=== PATIENT | female | born 1950 | race Caucasian/White ===

== ENCOUNTER 2024-03-16 14:51 | Outpatient (RCR) | payer OTHER, MEDICARE, SELFPAY | END 2024-03-16 23:59 | disposition home or self-care (01) | LOC: RPT 14:51 | PROVIDERS: ATTENDING PHYSICIAN Electrodiagnostic Medicine; FAMILY PHYSICIAN Internal Medicine | DX: M54.16 Radiculopathy, lumbar region (principal); Z73.6 Limitation of activities due to disability; M62.81 Muscle weakness (generalized) | CPT/HCPCS: 97110; 97112; 97163; 97530 ==

== ENCOUNTER 2024-04-09 13:00 | Outpatient (RCR) | payer OTHER, MEDICARE, SELFPAY | END 2024-04-09 23:59 | disposition home or self-care (01) | LOC: RPT 13:00 | PROVIDERS: ATTENDING PHYSICIAN Electrodiagnostic Medicine; FAMILY PHYSICIAN Internal Medicine | DX: M54.16 Radiculopathy, lumbar region (principal); M62.81 Muscle weakness (generalized); Z73.6 Limitation of activities due to disability | CPT/HCPCS: 97110; 97112 ==

== ENCOUNTER 2024-07-29 16:44 | Emergency (ER) | payer MEDICARE, OTHER, SELFPAY ==
[2024-07-29 16:48] VITALS: BP 151/107
[2024-07-29] MEDS: ADACEL 0.5 ML IM (18:02)
[2024-07-29] MEDS: TYLENOL 650 MG PO (19:05)
--- NOTE | 2024-07-29 23:27 | ED.MUSCINJ ---
HPI-Injury
General
Chief Complaint: Fall
Source: patient
Exam Limitations: none
Time Seen by Provider: 07/29/24 17:46
Nursing documentation reviewed up to this point in time: agreed with
History of Present Illness-Injury
Is this injury a work related problem?: No
Is pt an associate of [facility]?: No
Initial Injury comments:
Patient to ED after trip and fall. States she tripped over uneven pavement. Hit face on pavement. No LOC. COmplains of headache, face pain, bilateral hand pain, abrasions to bilateral hands and bilateral knees, low back pain. Injury occured
today. She was seen initially at but referred tp ED
Past History
Past History
ED Past Medical History: GERD, HTN, Hypercholesterolemia, Hypothyroidism, Psychiatric (Anxiety) and Other (MS, Thyroid, PTSD, Kim's thyroiditis, constipation)
ED Past Surgical History: Tonsilectomy and Other (Left breast lumpectomy, dental surgery)
Social History
Tobacco: Former smoker
Alcohol: Occasional
Drug: None
Personal:
Living: alone
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
Family History
Family History: Other (Noncontributory)
Musculoskeletal Injury Exam
Musculoskeletal Injury Exam
Left Face:
Pain with Movement?: Mild
Tender to palpation?: Moderate
Soft tissue swelling?: Mild
External deformity and angulation?: None
Joint effusion?: None
Contusion?: Moderate
Hematoma-local bleeding into tissue?: Mild
Strain- Sprain- Tear (Connective tissue injury)?: None
Crepitus with movement?: No
Joint instability?: No
Malalignment/deformity?: No
Range of motion: Full
Distal skin color and temperature: normal-warm & good color
Capillary Refill: normal
Normal distal neurovascular exam?: Yes
Bilateral Lower Back:
Pain with Movement?: Mild
Tender to palpation?: Mild
Soft tissue swelling?: None
External deformity and angulation?: None
Joint effusion?: None
Contusion?: None
Hematoma-local bleeding into tissue?: None
Strain- Sprain- Tear (Connective tissue injury)?: Mild
Crepitus with movement?: No
Joint instability?: No
Malalignment/deformity?: No
Range of motion: Full
Distal skin color and temperature: normal-warm & good color
Capillary Refill: normal
Normal distal neurovascular exam?: Yes
Bilateral Hand:
Pain with Movement?: Mild
Tender to palpation?: Mild
Soft tissue swelling?: None
External deformity and angulation?: None
Joint effusion?: None
Contusion?: None
Hematoma-local bleeding into tissue?: None
Strain- Sprain- Tear (Connective tissue injury)?: Moderate
Crepitus with movement?: No
Joint instability?: No
Malalignment/deformity?: No
Range of motion: Limited
Distal skin color and temperature: normal-warm & good color
Capillary Refill: normal
Normal distal neurovascular exam?: Yes
Skin Exam
Abrasion
Bilateral Hand:
Description of abrasion: superfical/clean
Bilateral Knee:
Description of abrasion: superfical/clean
Phy Exam
General Physical Exam
General Presentation: well appearing and no apparent distress
General age: appears stated age
General Skin: warm and dry
General Habitus: normal
General Mental: alert
Eye Exam
Eye Exam: PERRL, EOMI and conjunctiva normal
Cardiovascular Exam
Cardiovascular Exam: regular rate/rhythm and no edema
Neurological Exam
Neurological Exam: alert, oriented x3, CN II-XII intact, no motor deficits, no sensory deficits and speech normal
[place] Coma Scale
Eye Opening: Spontaneous
Verbal Response: Oriented
Motor Response: Obeys Commands
GCS Total Score: 15
Musculoskeletal Exam
Musculoskeletal Exam: full ROM and neuro vasc intact
Skin Exam
Skin Exam: normal color, warm/dry and no rash
Psychiatric Exam
Psychiatric Exam: normal mood/affect
Injury Course
Orders/Labs/Results
Orders:
Orders
07/29/24 17:55
Cervical Spine wo Contrast CT [CT Cervical Spine W/o Iv Contr] Urgent
Comment:
Reason For Exam: fall
Facial Bones wo Contrast CT [CT Facial Bones W/o Iv Contras] Urgent
Comment:
Reason For Exam: fall
Tetanus/Diphth/Acelpertussis [Adacel] 0.5 ml IM .ONCE ONE
CR Lumbar Spine Comp Min 4 Vw* Urgent
Comment:
Reason For Exam: fall
Hand, Left 3 View [CR Hand - Left Min 3 Views] Urgent
Comment:
Reason For Exam: fall
Hand, Right 3 View [CR Hand - Right Min 3 Views] Urgent
Comment:
Reason For Exam: fall
07/29/24 17:56
CT Head W/o Iv Contrast Urgent
Comment:
Reason For Exam: fall
07/29/24 18:15
Acetaminophen [Tylenol] 650 mg PO NOW STA
*Radiology
Radiology exam reviewed: radiology read reviewed
*Pulse Oximetry
Patient hypoxic: no
*Critical Care Note
Total Time (30-74mins, 75-104mins- exclusive of procedures): Not Applicable
Update Note
Update Note:
Patient to ED s/p fall on uneven pavement. Hit head but no LOC. CT head neg. Moving all extremities, equal strength bilaterally. Able to ambulate without assistance. Wounds cleansed and dressed by RN. Reviewed CT and xray reports with her.
Will discharge home and she will follow upw ith PCP. She is agreeable to plan.
ED Attending Note
-
Portions of this chart may have been created with voice recognition software.� Occasional wrong word or��sound alike� substitutions may have occurred due to the inherent limitations of voice recognition software.
Discharge Plan
Departure
Patient Disposition: Home (Routine Discharge)
Date of Disposition: 07/29/24
Time of Disposition: 19:16
Patient with high blood pressure during this ER visit?: No
Condition: Good
Covid-19: Not Applicable
Discharge Problem:
Head injury, Contusion of face, Contusion of knee, Multiple abrasions
Instructions: Wound Care (DC), Head Injury in Adults (DC), Contusion (DC), Preventing falls in adults, Skin Abrasions (DC), Using Cold for Pain, Ibuprofen
Prescriptions:
No Action
levothyroxine 75 MCG tablet
75 mcg PO DAILY
diazepam 2 MG tablet
2 mg PO HSPRN PRN (Reason: anxiety)
simvastatin 5 MG tablet
5 mg PO DAILY
docusate sodium 100 MG capsule
300 mg PO HS
Referrals:
Octavia aCrvajal NP [Family Provider] - Tomorrow
Interventions
Interventions:
*Risk Screen - Suicide Last Done: 07/29/24 16:48
*General Assessment Last Done: 07/29/24 16:48
*Neglect/Abuse Screening Last Done: 07/29/24 16:48
ED- Fall Risk Assessment Last Done: 07/29/24 17:22
*ED COVID-19 Vaccine History Last Done: 07/29/24 16:48
*Nursing Disposition Last Done: 07/29/24 19:20
ED-Musculoskeletal Assessment Last Done: 07/29/24 17:19
ED- Neurological Assessment Last Done: 07/29/24 17:19
ED-Skin Assessment Last Done: 07/29/24 17:19
Discharge Date and Time
Discharge Date/Time: 07/29/24 19:42
Print Language: YI
== END 2024-07-29 19:42 | disposition home or self-care (01) ==
LOC: EMR 16:44
PROVIDERS: EMERGENCY PHYSICIAN Emergency Medicine; FAMILY PHYSICIAN Internal Medicine
DX: S00.83XA Contusion of other part of head, initial encounter (principal); S80.212A Abrasion, left knee, initial encounter; S80.211A Abrasion, right knee, initial encounter; S60.512A Abrasion of left hand, initial encounter; S60.511A Abrasion of right hand, initial encounter; W18.09XA Striking against other object with subsequent fall, initial encounter; E78.00 Pure hypercholesterolemia, unspecified; I10 Essential (primary) hypertension; K21.9 Gastro-esophageal reflux disease without esophagitis; E03.9 Hypothyroidism, unspecified; Z87.891 Personal history of nicotine dependence; Z23 Encounter for immunization
CPT/HCPCS: 90471; 99284; 70450; 70486; 72110; 72125; 73130; 90715